=== PATIENT | male | born 1950 | race Caucasian/White ===

== ENCOUNTER 2016-06-22 11:36 | Emergency (ER) | payer OTHER ==
[2016-06-22 11:38] VITALS: BP 158/110
--- NOTE | 2016-06-22 12:00 | PROVIDER DOCUMENTATION ---
HPI-General Adult - General Source: patient - History of Present Illness -Gen Adult Nature of Presenting Problems: patient is a 66 y/o M that presents to the ER with elevated BP, patient reports taking cough medicine recently. He denies any chest pain, shortness of breath, or dizziness/headache. patient has been taking his medication. Location of Pain/Injury: reports: none Pain Radiation: reports: no radiation Quality of Pain: reports: none Severity: reports: mild Onset/Duration: reports: unsure Timing: reports: still present, constant Context/Activities at Onset: reports: none Modifying Factors: improves with: nothing Associated Symptoms: denies: chest pain, diarrhea, dizziness, headaches, nausea , shortness of breath, vomiting, weakness Similar Symptoms Previously?: No Recently seen or treated by another doctor?: No - General Chief Complaint: B/P Problems Stated Complaint: elevated BP Time Seen by Provider: 06/22/16 11:50 Review of Systems - Adult - REVIEW OF SYSTEMS - ADULT Constitutional: denies: chills, fever Eyes: denies: blurred vision, double vision Cardiovascular: denies: chest pain, palpitations, syncope Respiratory: denies: cough, shortness of breath, wheezing Gastrointestinal: denies: abdominal pain, nausea, vomiting Neurological: denies: dizziness/vertigo, headache/migraines Past History - Adult - PAST MEDICAL HISTORY-ADULT Review of Records: reports: Old Records Reviewed, Nursing Assessment Review, Medications Reviewed Cardiovascular: reports: CAD, HTN - PRIOR SURGERIES/PROCEDURES Surgical/Procedure History: reports: CABG - IMMUNIZATION STATUS Childhood Immunizations: See Nurse Assessment Flu Vaccine: See Nurse Assessment - FAMILY HISTORY Family History: reviewed, not pertinent Physical Exam-General - CONSTITUTIONAL General Appearance: alert, no apparent distress - EYES Eyes: PERRL/EOMI, pink conjunctivae - HEAD, EARS, NOSE, MOUTH & THROAT HENMT: normocephalic/atraumatic, moist mucous membranes, normal ENT inspection - NECK Neck: full range of motion, normal inspection - RESPIRATORY Respiratory: lungs clear, normal breath sounds, no respiratory distress, no accessory muscle use, other (well healed midline surgical scar) - CARDIOVASCULAR Cardiovascular: regular rate, rhythm, no edema, no murmur - GASTROINTESTINAL (ABDOMEN) Abdominal Exam: normal bowel sounds, non tender, soft - MUSCULOSKELETAL Extremity: normal range of motion, non-tender, normal inspection, no pedal edema - SKIN Integumentary: normal color, warm/dry - NEUROLOGIC 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 patient was advised that he needed evaluation of bp and the dangers of driving. 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 patient verbally understood that and the risks of leaving against medical advice. patient will sign AMA form. Departure - Departure Time of Disposition Order: 11:53 Certified Medical Emergency: Emergent - Departure DIAGNOSIS: Hypertension Qualifiers: Hypertension type: essential hypertension Qualified Code(s): I10 - Essential ( primary) hypertension Disposition: AGAINST MEDICAL ADVICE 07 Condition: Stable Referrals: Fox Lam MD [Primary Care Provider] - Call for Appoint. 1-2days Attestation - Scribe Verification/Attestation Scribe:: Ney Bocanegra Acting as Scribe for:: Scott Ford Scribe documention review:: This chart was documented by a scribe and accurately reflects the service the provider performed and the decisions made by the provider. Physician Attestation - Physician Attestation I, the provider, attest to the following statement:: Scott Ford Physician documentation Attestation:: This documentation recorded by the scribe accurately reflects the service I personally performed and the decisions made by me.
== END 2016-06-22 11:58 | disposition left against medical advice (07) ==
LOC: ED 11:36
DX: I10 Essential (primary) hypertension (principal); L90.5 Scar conditions and fibrosis of skin; I25.10 Atherosclerotic heart disease of native coronary artery without angina pectoris; Z95.1 Presence of aortocoronary bypass graft

== ENCOUNTER 2016-06-22 13:06 | Observation (INO) | payer OTHER ==
[2016-06-22] MEDS ORDERED: ASPIRIN PO STA (13:24)
--- NOTE | 2016-06-22 13:31 | PROVIDER DOCUMENTATION ---
HPI-General Adult - General Source: patient - History of Present Illness -Gen Adult Nature of Presenting Problems: patient is a 66 y/o M that present to the ER with elevated BP and RAMIREZ. he has recently taken OTC cold medication. reports not missing any of his BP meds. Denies chest pain, n/v/d, visual issues, or dizziness. 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 Location of Pain/Injury: reports: head Quality of Pain: reports: aching Severity: reports: mild Onset/Duration: reports: unsure Timing: reports: still present, constant Context/Activities at Onset: reports: other (taken cough medication) Modifying Factors: improves with: nothing Associated Symptoms: reports: headaches. denies: chest pain, diaphoresis, diarrhea, EENT symptoms, fever/chills, genitourinary problems, nausea, shortness of breath, vomiting, weakness Similar Symptoms Previously?: No Recently seen or treated by another doctor?: No <Ney Bocanegra - Last Filed: 06/22/16 13:26> <Scott Ford - Last Filed: 06/22/16 16:44> - General Chief Complaint: B/P Problems Stated Complaint: BP Time Seen by Provider: 06/22/16 13:24 Review of Systems - Adult - REVIEW OF SYSTEMS - ADULT Constitutional: denies: chills, fever Eyes: denies: decreased vision, blurred vision, double vision Ears, Nose, Mouth & Throat: denies: ear discharge, ear pain, sinus problem, throat pain, throat swelling Cardiovascular: denies: chest pain, palpitations, syncope Respiratory: denies: chronic cough, cough, shortness of breath, wheezing Gastrointestinal: denies: abdominal pain, diarrhea, nausea, vomiting Genitourinary: reports: no symptoms reported Musculoskeletal: denies: back pain, joint pain, neck pain Integumentary: reports: no symptoms reported Neurological: reports: headache/migraines. denies: dizziness/vertigo, seizure, tremors Psychiatric: reports: no symptoms reported Endocrine: reports: no symptoms reported Hematologic/Lymphatic: reports: no symptoms reported Allergic/Immunologic: reports: no symptoms reported All Other Systems: Reviewed and Negative <Ney Bocanegra - Last Filed: 06/22/16 13:26> Past History - Adult - PAST MEDICAL HISTORY-ADULT Review of Records: reports: Old Records Reviewed, Nursing Assessment Review, Medications Reviewed Cardiovascular: reports: CAD, HTN - PRIOR SURGERIES/PROCEDURES Surgical/Procedure History: reports: CABG - IMMUNIZATION STATUS Childhood Immunizations: See Nurse Assessment Flu Vaccine: See Nurse Assessment - FAMILY HISTORY Family History: reviewed, not pertinent - SOCIAL HISTORY Smoking: non-smoker Living Situation: family <Ney Bocanegra - Last Filed: 06/22/16 13:26> Physical Exam-General - PHYSICAL EXAM-ADULT Initial Vital Signs Reviewed: Yes - CONSTITUTIONAL General Appearance: alert, no apparent distress - EYES Eyes: PERRL/EOMI, pink conjunctivae - HEAD, EARS, NOSE, MOUTH & THROAT HENMT: normocephalic/atraumatic, moist mucous membranes, normal ENT inspection - NECK Neck: full range of motion, normal inspection. 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, no motor/sensory deficits - PSYCHIATRIC Psych/Mental Status: normal mood/affect, normal thought content, normal thought process, oriented x 3 <Ney Bocanegra - Last Filed: 06/22/16 13:26> Progress - PLAN OF CARE/RESULTS Progress/Plan/Lab Results: plan of care-labs, cxr <Ney Bocanegra - Last Filed: 06/22/16 13:26> - PLAN OF CARE/RESULTS Progress/Plan/Lab Results: Laboratory Tests 06/22/16 06/22/16 06/22/16 13:30 14:06 14:06 WBC 11.47 H RBC 4.61 L Hgb 13.5 L Hct 41.3 L MCV 89.6 MCH 29.3 MCHC 32.7 L RDW Std Deviation 14.3 Plt Count 247 MPV 11.1 H Immature Gran % (Auto) 1.8 H Neut % (Auto) 69.1 Lymph % (Auto) 14.8 L Giles % (Auto) 10.1 H Eos % (Auto) 3.9 Baso % (Auto) 0.3 Immature Gran # (Auto) 0.21 H Neut # (Auto) 7.91 H Lymph # (Auto) 1.70 Giles # (Auto) 1.16 H Eos # (Auto) 0.45 Baso # (Auto) 0.04 Segmented Neutrophils Cancelled Band Neutrophils Cancelled Lymphocytes Cancelled Monocytes Cancelled Eosinophils Cancelled Basophils Cancelled Metamyelocytes Cancelled Myelocytes Cancelled Promyelocytes Cancelled Nucleated RBCs Cancelled Atypical Lymphocytes Cancelled Blast Cells Cancelled Hypochromia Cancelled Vacuolization Cancelled Toxic Granulation Cancelled Dohle Bodies Cancelled Large Platelets Cancelled Polychromasia Cancelled Poikilocytosis Cancelled Basophilic Stippling Cancelled Anisocytosis Cancelled Microcytosis Cancelled Macrocytosis Cancelled Spherocytes Cancelled Sickle Cells Cancelled Target Cells Cancelled Ovalocytes Cancelled Stomatocytes Cancelled [place] Bodies Cancelled [place] Cells Cancelled Unidentified Cells Cancelled Schistocytes Cancelled PT INR PTT (Actin FS) D-Dimer 1.70 H Sodium 141 Potassium 4.1 Chloride 99 Carbon Dioxide 27 Anion Gap 15 BUN 22 Creatinine 1.0 Estimated GFR/1.73 m2 > 60 BUN/Creatinine Ratio 22 Glucose 112 H Calculated Osmolality 285 Calcium 8.9 Magnesium 2.1 Total Bilirubin 0.22 AST 16 ALT 35 Alkaline Phosphatase 90 Creatine Kinase 22 L Troponin T [id number]-[id number] Pept Total Protein 6.4 Albumin 3.7 Globulin 2.7 Albumin/Globulin Ratio 1.4 06/22/16 06/22/16 06/22/16 14:06 14:06 14:06 WBC RBC Hgb Hct MCV MCH MCHC RDW Std Deviation Plt Count MPV Immature Gran % (Auto) Neut % (Auto) Lymph % (Auto) Giles % (Auto) Eos % (Auto) Baso % (Auto) Immature Gran # (Auto) Neut # (Auto) Lymph # (Auto) Giles # (Auto) Eos # (Auto) Baso # (Auto) Segmented Neutrophils Band Neutrophils Lymphocytes Monocytes Eosinophils Basophils Metamyelocytes Myelocytes Promyelocytes Nucleated RBCs Atypical Lymphocytes Blast Cells Hypochromia Vacuolization Toxic Granulation Dohle Bodies Large Platelets Polychromasia Poikilocytosis Basophilic Stippling Anisocytosis Microcytosis Macrocytosis Spherocytes Sickle Cells Target Cells Ovalocytes Stomatocytes [place] Bodies Molly Cells Unidentified Cells Schistocytes PT 10.7 INR 1.01 PTT (Actin FS) 20.3 L D-Dimer Sodium Potassium Chloride Carbon Dioxide Anion Gap BUN Creatinine Estimated GFR/1.73 m2 BUN/Creatinine Ratio Glucose Calculated Osmolality Calcium Magnesium Total Bilirubin AST ALT Alkaline Phosphatase Creatine Kinase Troponin T < 0.010 Vmf-P-Monjcxqdnbb Pept 257 H Total Protein Albumin Globulin Albumin/Globulin Ratio Orders Category Date Time Status Admit - [facility] Routine AdmDCTranf 06/22/16 16:29 Ordered Call Admitting on Arrival AT ADMISSION Care 06/22/16 16:30 Active Cardiac Monitoring DIRECTED Care 06/22/16 13:24 Active Neurological Check PRN Care 06/22/16 16:28 Active Saline Loc NOW Care 06/22/16 13:24 Active Vital Signs Order Q 8-HR .ASSESS Care 06/22/16 16:28 Active CHEST-2 VIEWS [RAD] Stat Exams 06/22/16 13:[address] THORAX W/O CONTRAST [CT] Stat Exams 06/22/16 15:01 Completed BLOOD CULTURE [BLDCUL] Stat Lab 06/22/16 16:18 Uncollected CBC WITH ELECTRONIC DIFF [HEME] Stat Lab 06/22/16 13:30 Completed CK PROFILE [SP CHEM] Stat Lab 06/22/16 14:06 Completed COMPREHENSIVE METABOLIC PANEL [CHEM] Stat Lab 06/22/16 14:06 Completed D-DIMER [CHEM] Stat Lab 06/22/16 14:06 Completed LACTATE, PLASMA [CHEM] Stat Lab 06/22/16 16:28 Received MAGNESIUM [CHEM] Stat Lab 06/22/16 14:06 Completed PRO B-NATRIURETIC PEPTIDE Stat Lab 06/22/16 14:06 Completed PROTIME WITH INR [COAG] Stat Lab 06/22/16 14:06 Completed PTT [COAG] Stat Lab 06/22/16 14:06 Completed TROPONIN T Stat Lab 06/22/16 14:06 Completed Aspirin Med 06/22/16 13:24 Discontinued 325 mg PO STAT STA Levofloxacin 750 mg/D5w [Levaquin 750 mg/D5w] 150 ml Med 06/22/16 16:18 Active IV NOW EKG [EKG] Stat Ther 06/22/16 13:24 Ordered Transfer/Admit Order [TRANSFER] Routine Transfer 06/22/16 16:36 Ordered Vital Signs Temp Pulse Resp BP Pulse Ox 06/22/16 16:41 165/92 06/22/16 16:16 66 16 97 06/22/16 13:08 97.8 F 65 18 168/95 99 No Known Allergies Allergy (Verified 06/22/16 14:29) Aspirin [Aspirin EC] 81 mg PO DAILY 06/22/16 Lisinopril [Zestril] 10 mg PO QHS 06/22/16 Metoprolol Succinate E.r. [Toprol Xl] 50 mg PO BID 06/22/16 Omeprazole [Prilosec] 40 mg PO DAILY 06/22/16 Laboratory 06/22/16 06/22/16 06/22/16 14:06 14:06 14:06 WBC RBC Hgb Hct MCV MCH MCHC RDW Std Deviation Plt Count MPV Immature Gran % (Auto) Neut % (Auto) Lymph % (Auto) Giles % (Auto) Eos % (Auto) Baso % (Auto) Immature Gran # (Auto) Neut # (Auto) Lymph # (Auto) Giles # (Auto) Eos # (Auto) Baso # (Auto) Segmented Neutrophils Band Neutrophils Lymphocytes Monocytes Eosinophils Basophils Metamyelocytes Myelocytes Promyelocytes Nucleated RBCs Atypical Lymphocytes Blast Cells Hypochromia Vacuolization Toxic Granulation Dohle Bodies Large Platelets Polychromasia Poikilocytosis Basophilic Stippling Anisocytosis Microcytosis Macrocytosis Spherocytes Sickle Cells Target Cells Ovalocytes Stomatocytes [place] Bodies [place] Cells Unidentified Cells Schistocytes PT 10.7 INR 1.01 PTT (Actin FS) 20.3 L D-Dimer Sodium Potassium Chloride Carbon Dioxide Anion Gap BUN Creatinine Estimated GFR/1.73 m2 BUN/Creatinine Ratio Glucose Calculated Osmolality Calcium Magnesium Total Bilirubin AST ALT Alkaline Phosphatase Creatine Kinase Troponin T < 0.010 Cem-F-Oclcjrdvgfi Pept 257 H Total Protein Albumin Globulin Albumin/Globulin Ratio 06/22/16 06/22/16 06/22/16 14:06 14:06 13:30 WBC 11.47 H RBC 4.61 L Hgb 13.5 L Hct 41.3 L MCV 89.6 MCH 29.3 MCHC 32.7 L RDW Std Deviation 14.3 Plt Count 247 MPV 11.1 H Immature Gran % (Auto) 1.8 H Neut % (Auto) 69.1 Lymph % (Auto) 14.8 L Giles % (Auto) 10.1 H Eos % (Auto) 3.9 Baso % (Auto) 0.3 Immature Gran # (Auto) 0.21 H Neut # (Auto) 7.91 H Lymph # (Auto) 1.70 Giles # (Auto) 1.16 H Eos # (Auto) 0.45 Baso # (Auto) 0.04 Segmented Neutrophils Cancelled Band Neutrophils Cancelled Lymphocytes Cancelled Monocytes Cancelled Eosinophils Cancelled Basophils Cancelled Metamyelocytes Cancelled Myelocytes Cancelled Promyelocytes Cancelled Nucleated RBCs Cancelled Atypical Lymphocytes Cancelled Blast Cells Cancelled Hypochromia Cancelled Vacuolization Cancelled Toxic Granulation Cancelled Dohle Bodies Cancelled Large Platelets Cancelled Polychromasia Cancelled Poikilocytosis Cancelled Basophilic Stippling Cancelled Anisocytosis Cancelled Microcytosis Cancelled Macrocytosis Cancelled Spherocytes Cancelled Sickle Cells Cancelled Target Cells Cancelled Ovalocytes Cancelled Stomatocytes Cancelled [place] Bodies Cancelled Molly Cells Cancelled Unidentified Cells Cancelled Schistocytes Cancelled PT INR PTT (Actin FS) D-Dimer 1.70 H Sodium 141 Potassium 4.1 Chloride 99 Carbon Dioxide 27 Anion Gap 15 BUN 22 Creatinine 1.0 Estimated GFR/1.73 m2 > 60 BUN/Creatinine Ratio 22 Glucose 112 H Calculated Osmolality 285 Calcium 8.9 Magnesium 2.1 Total Bilirubin 0.22 AST 16 ALT 35 Alkaline Phosphatase 90 Creatine Kinase 22 L Troponin T Bll-P-Wfvaabdzsjw Pept Total Protein 6.4 Albumin 3.7 Globulin 2.7 Albumin/Globulin Ratio 1.4 - XRAY 1 XRAY Study: Chest Impression: See EMR Report (left lower lobe loculation) - CT/MRI 1 CT Study: other (chest CT without contract as pt is allergic, loculated pleural effusion) Impression: See EMR Report - CONSULTS/PCP/HOSPITALIST Notification #1 *Consult/PCP/Hospitalist*: Dr Lam Consult Disposition: Admit <Scott Ford - Last Filed: 06/22/16 16:44> Departure <Ney Bocanegra - Last Filed: 06/22/16 13:26> - Departure Time of Disposition Order: 16:43 Certified Medical Emergency: Emergent <Scott Ford - Last Filed: 06/22/16 16:44> - Departure DIAGNOSIS: Pleural effusion Chest pain Qualifiers: Chest pain type: unspecified Qualified Code(s): R07.9 - Chest pain, unspecified Disposition: ADMITTED INPATIENT 09 Condition: Fair Attestation - Scribe Verification/Attestation Scribe:: Ney Bocanegra Acting as Scribe for:: Scott Ford Scribe documention review:: This chart was documented by a scribe and accurately reflects the service the provider performed and the decisions made by the provider. <Ney Bocanegra - Last Filed: 06/22/16 13:26> Physician Attestation - Physician Attestation I, the provider, attest to the following statement:: Scott Ford Physician documentation Attestation:: This documentation recorded by the scribe accurately reflects the service I personally performed and the decisions made by me. <Ney Bocanegra - Last Filed: 06/22/16 13:26>
--- NOTE | 2016-06-22 14:16 | Diag Imaging Result Document ---
PROCEDURE NAME: CHEST-2 VIEWS - 06/22/2016 TWO VIEWS OF THE CHEST: FINDINGS: There is a pleural-based mass on the left which may be a loculated effusion. There are sternotomy wires. The heart size and pulmonary vascularity are within normal limits. The right lung is clear. There are no previous studies. IMPRESSION: Loculated pleural effusion versus pleural mass on the left.
[2016-06-22 14:32] LABS: BASO% 0.3 % (0.0-0.8); MANUAL DIFF NEEDED? YES
[2016-06-22 14:51] LABS: EOS# 0.45 X1000 (0.0-0.7); EOS% 3.9 % (0.0-10.0); HEMATOCRIT 41.3 % (42.0-52.0); HEMOGLOBIN 13.5 g/dL (14.0-18.0); IMM GRAN# 0.21 X1000 (0.0-0.04); IMM GRAN% 1.8 % (0.0-0.5); LYMPH% 14.8 % (20.5-51.1); MCH 29.3 PG (27-31); MCHC 32.7 g/dL (33-37); MCV 89.6 FL (81-99); MONO# 1.16 X1000 (0.11-0.59); MONO% 10.1 % (1.7-9.3); MPV 11.1 FL (7.4-10.4); NEUT% 69.1 % (42.2-75.2); PLT 247 X1000 (130-400); RBC 4.61 XMIL (4.7-6.1)
[2016-06-22 14:59] LABS: AGAP 15; ALBUMIN 3.7 g/dL (3.5-5.0); ALKALINE PHOSPHATASE 90 U/L (32-122); BUN 22 mg/dL (8-22); CALCIUM 8.9 mg/dL (8.8-10.2); CHLORIDE 99 mmol/L (98-107); CK PROFILE 22 U/L (24-204); COSMO 285; GOT 16 U/L (10-34); GPT 35 U/L (10-44); MAGNESIUM 2.1 mg/dL (1.5-2.7); POTASSIUM 4.1 mmol/L (3.5-5.1); SODIUM 141 mmol/L (136-145); TCO2 27 mmol/L (25-35); TOTAL BILIRUBIN 0.22 mg/dL (0.20-1.00); TOTAL PROTEIN 6.4 g/dL (6.3-8.3)
[2016-06-22 15:31] LABS: INR 1.01; PROTIME 10.7 Seconds (9.2-11.7); PTT 20.3 Seconds (22.0-36.0)
--- NOTE | 2016-06-22 15:49 | Diag Imaging Result Document ---
PROCEDURE NAME: CT THORAX W/O CONTRAST - 06/22/2016 CT CHEST: 06/22/2016. COMPARISON: Chest x-ray earlier 06/22/2016. FINDINGS: There is a loculated, minimally complicated pleural effusion at the posterolateral left lung base. This measures about 12.6 x 8.2 cm axially. There is some adjacent atelectasis. There are sternotomy changes and CABG changes. Heart and great vessels are normal. The lungs are grossly clear of infiltrate. There are cholecystectomy clips. There is fatty atrophy of the pancreas. Otherwise, upper abdominal images are unremarkable. Bony structures are intact. IMPRESSION: Loculated, minimally complicated left basilar pleural effusion.
[2016-06-22] MEDS ORDERED: LEVAQUIN 750 MG/D5W 150 ML IV ONE (16:18)
[2016-06-22] MEDS ORDERED: FLUZONE QUAD 2016-2017 SYRINGE IM ONE (17:55)
[2016-06-22] MEDS ORDERED: PREVNAR 13 IM ONE (18:16)
[2016-06-22] MEDS ORDERED: PNEUMOVAX 23 IM ONE (18:19)
[2016-06-22] MEDS ORDERED: APRESOLINE IV PRN (19:11)
[2016-06-22] MEDS: TOPROL XL PO SCH (20:46)
[2016-06-22] MEDS: PRINIVIL PO SCH (20:46)
--- NOTE | 2016-06-22 22:13 | HISTORY AND PHYSICAL ---
CHIEF COMPLAINT: Elevated blood pressure. Headache. HISTORY OF PRESENT ILLNESS: He is a 66-year-old white gentleman patient of mine who was not seen since November 2015. He had a bypass surgery in [facility] in [place]. Apparently he was seen in one of the walk-in clinics for upper respiratory infection. He felt a headache and went to the [facility] for checking the blood pressure. The blood pressure was 190/100. Subsequently, he came to the emergency room for further evaluation. Apparently in the ER as a part of the workup chest x-ray showed some effusion on the left side. The patient denies any chest pain or swelling of legs. Subsequently, he had a CT of the chest which showed loculated fluid and the patient is asymptomatic. I do not have any previous x-rays for comparison in my office. Basically, he was admitted to the hospital for observation for 1) control of the blood pressure, 2) evaluation of loculated effusion which was discovered in by routine chest x-ray. PAST MEDICAL HISTORY: Abdominal aneurysm 4.4 cm. Coronary artery disease. Hypertension. Hyperlipidemia. Type 2 diabetes. Chronic anxiety. PAST SURGICAL HISTORY: Bypass surgery. Cholecystectomy. MEDICATIONS: Lisinopril 5 mg daily, aspirin 81 mg daily, Toprol 50 daily, Xanax 0.25 daily, Zanaflex 4 mg daily, Zocor 40 mg daily. ALLERGIES: Norvasc due to edema. 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 He lives in [place]. No smoking. No alcohol. FAMILY HISTORY: Father of heart attack at 72. Mom of Alzheimer's disease. Brother has diabetes. HEALTH MAINTENANCE: Last physical exam in June 2015, colonoscopy [address] Reyes in [place]. Vaccines were refused, flu and pneumococcal vaccine. REVIEW OF SYSTEMS: HEENT: Slight headache. No vision problem. No earache. No sore throat. Sinuses recently. Neck: No goiter. No lymphadenopathy. No bruit. Cardiopulmonary: No chest pain, shortness of breath, PND, orthopnea. GI: No nausea, vomiting, abdominal pain. : No history of hesitancy, frequency. No swelling of feet. No joint pain. Neurologic: No focal symptoms or weakness. PHYSICAL EXAMINATION: VITAL SIGNS: Stable. HEENT: Atraumatic, normocephalic. Pupils equal, react to light. TMs are normal. Nose and throat congested. NECK: Supple. No lymphadenopathy. No goiter. CHEST: Bilateral air entry. No rales, no wheezing. Decreased breath sounds in the left base. ABDOMEN: Belly is soft, nontender. Good bowel sounds. No masses palpable. EXTREMITIES: No peripheral edema, cyanosis. NEUROLOGIC: No obvious neurological deficits. INVESTIGATIONS: White cell count 11, hematocrit 41, platelets 247,000. SMA 7 is normal. Cardiac enzymes were normal. ProBNP is normal. Chest x-ray: loculated effusion confirmed on the chest CT. ASSESSMENT AND PLAN: 1. A 66-year-old white gentleman, admitted to the hospital with headache due to elevated blood pressure. Optimize the blood pressure medications with lisinopril and metoprolol. 2. Coronary artery disease, stable. Check the cardiac enzymes. 3. Loculated fluid in the left side, asymptomatic. Unable to see the previous x -rays. 4. Initiate vaccination protocol. Flu and pneumonia. 5. Abdominal aortic aneurysm, infrarenal, he is due for a checkup in 6 months and we will discuss with the patient based on the laboratory workup. [facility]
--- NOTE | 2016-06-23 05:39 | EKG Report ---
Test Performed on : 06/22/2016 6:07:39 PM Test Reason : Chest Pain Blood Pressure : / mmHG Vent. Rate : 061 BPM Atrial Rate : 061 BPM P-R Int : 174 ms QRS Dur : 090 ms QT Int : 452 ms P-R-T Axes : 037 019 061 degrees QTc Int : 455 ms Normal sinus rhythm. Normal ECG No previous ECGs available Unconfirmed Result
--- NOTE | 2016-06-23 06:49 | EKG Report ---
Test Performed on : 06/23/2016 06:35:29 AM Test Reason : cp Blood Pressure : / mmHG Vent. Rate : 060 BPM Atrial Rate : 060 BPM P-R Int : 176 ms QRS Dur : 098 ms QT Int : 424 ms P-R-T Axes : 041 018 065 degrees QTc Int : 424 ms Normal sinus rhythm. Normal ECG When compared with ECG of 22-JUN-2016 18:07, (Unconfirmed) No significant change was found Confirmed by Kimberli CRABTREE, Eric Delvalle ([id number]) on 06/24/2016 5:21:01 PM
[2016-06-23 07:23] LABS: MANUAL DIFF NEEDED? NO
[2016-06-23 07:29] LABS: BASO% 0.2 % (0.0-0.8); EOS# 0.37 X1000 (0.0-0.7); EOS% 3.4 % (0.0-10.0); HEMATOCRIT 41.5 % (42.0-52.0); HEMOGLOBIN 13.6 g/dL (14.0-18.0); IMM GRAN# 0.12 X1000 (0.0-0.04); IMM GRAN% 1.1 % (0.0-0.5); LYMPH# 1.45 X1000 (1.2-3.4); LYMPH% 13.2 % (20.5-51.1); MCH 28.8 PG (27-31); MCHC 32.8 g/dL (33-37); MCV 87.9 FL (81-99); MPV 10.7 FL (7.4-10.4); NEUT% 72.1 % (42.2-75.2); PLT 252 X1000 (130-400); RBC 4.72 XMIL (4.7-6.1)
[2016-06-23 07:41] LABS: AGAP 13; AMYLASE 36 U/L (20-200); BUN 18 mg/dL (8-22); CALCIUM 8.8 mg/dL (8.8-10.2); CHLORIDE 97 mmol/L (98-107); CK PROFILE 26 U/L (24-204); COSMO 277; POTASSIUM 4.3 mmol/L (3.5-5.1); SODIUM 137 mmol/L (136-145); TCO2 27 mmol/L (25-35)
[2016-06-23] MEDS: PRILOSEC PO SCH (08:11)
[2016-06-23] MEDS: ASPIRIN EC PO SCH (08:11)
[2016-06-23] MEDS: TOPROL XL PO SCH ×2 (08:11→19:59)
[2016-06-23] MEDS: PRINIVIL PO SCH (19:59)
[2016-06-24 07:47] VITALS: BP 153/83
[2016-06-24] MEDS: PRILOSEC PO SCH (08:00)
[2016-06-24] MEDS: TOPROL XL PO SCH (08:00)
[2016-06-24] MEDS: ASPIRIN EC PO SCH (08:00)
--- NOTE | 2016-06-25 11:18 | DISCHARGE SUMMARY ---
ADMISSION DATE: 06/22/2016 DISCHARGE DATE: 06/24/2016 DISCHARGE DIAGNOSES: 1. Headache due to elevated blood pressure. 2. Abdominal aneurysm 4.4 cm. 3. Computer-aided detection, status post bypass surgery. 4. Hypertension. 5. Hyperlipidemia. 6. Type 2 diabetes, diet controlled. 7. Chronic anxiety. 8. Abnormal chest x-ray with chronic loculated pleural effusion on the left side. BRIEF HISTORY: Please see the H and P that was done on 06/22/2016. In brief, he is a 66-year-old, white gentleman, who was admitted to the hospital for observation with a headache, elevated blood pressure. Recently was treated for URI symptoms. His blood pressure was 200 by 90, and he was worried about aneurysm. During the routine workup, the patient had an abnormal chest x-ray. I do not have baseline reports from my office. He had bypass surgery in [place] at [facility] under the care of Dr. Rayo. CT of the chest showed loculated fluid collection in the left lower lobe. Currently, he is asymptomatic. I did discuss these findings with the patient. We need to review the previous x-ray's report and down the line we will aspirate if he is symptomatic. In the meantime, I did increase the lisinopril to 40 mg once a day and hydralazine as needed. The rest of the hospital course was uneventful. LABORATORY DATA: CBC: White cell count 10, hematocrit 41, platelets 252,000. SMA-7: Sodium 137, potassium 4.3, chloride 97. BUN 18, creatinine 0.9, glucose 125. Cardiac enzymes were normal. ProBNP was normal. IMAGING: Chest CT on 06/22/2016 showed loculated minimally complicated left basilar pleural effusion. DISCHARGE MEDICATIONS: 1. Aspirin 80 mg daily. 2. Lisinopril 40 mg daily. 3. Prilosec 40 daily. 4. Metoprolol 50 p.o. b.i.d. DISCHARGE INSTRUCTIONS: 1. If blood pressure increases, we will add diuretics. 2. Continue the diet and exercise. 3. Follow up on his chronic loculated left pleural effusion. 4. Surveillance of AAA in 11/2016.
== END 2016-06-24 10:10 | disposition home or self-care (01) ==
LOC: ED 13:06 → 3N 16:54
PROVIDERS: ADMIT Internal Medicine; ATTEND Internal Medicine
DX: I10 Essential (primary) hypertension (principal); R51 Headache; J90 Pleural effusion, not elsewhere classified; I25.10 Atherosclerotic heart disease of native coronary artery without angina pectoris; I71.4 Abdominal aortic aneurysm, without rupture; E78.5 Hyperlipidemia, unspecified; E11.9 Type 2 diabetes mellitus without complications; Z95.1 Presence of aortocoronary bypass graft; F41.9 Anxiety disorder, unspecified; Z79.899 Other long term (current) drug therapy; Z79.82 Long term (current) use of aspirin; Z23 Encounter for immunization; Z82.49 Family history of ischemic heart disease and other diseases of the circulatory system; Z81.8 Family history of other mental and behavioral disorders; Z83.3 Family history of diabetes mellitus
CPT/HCPCS: 71020; 71250; 80048; 80053; 82150; 82550; 83605; 83735; 83880; 84484; 85025; 85379; 85610; 85730; 87040; 90732; 93005; 93010; 96374; J0360; Q2038